=== PATIENT | female | born 1975 | race Caucasian/White ===

== ENCOUNTER 2024-07-09 01:54 | Day surgery (SDC) | payer BC, SELFPAY ==
[2024-07-03 13:50] VITALS: BMI 34.4
--- NOTE | 2024-07-03 14:26 | SUR.PREOP ---
Report to the Outpatient Waiting Room, entrance under the green pavilion located off [facility], at time 1130 on date 07/09/24_. Planned Procedure Time: 1330.? Time changes happen often and if your time is changed the preop area will call you the afternoon before. - You and your visitor will be asked to self-screen and do not enter if you have any COVID symptoms. Please call surgeon if you need to reschedule. - A mask is optional within the hospital at this time. Patients may have clear liquids (water, carbonated beverages, clear teas, apple juice) until 3 hours prior to surgery with a maximum of 20 ounces. - No food from midnight until time of surgery and no smoking - Infants may have breast milk until 4 hours before surgery, infant formula 6 hours prior to surgery. - Children will be allowed to drink immediately following surgery.? If applicable, please bring a bottle or sippy cup to assist with drinking. Juice, water, soda, and popsicles are readily available.? For infants on formula, please bring formula the day of surgery.? Pacifiers are allowed. Take only the following medications with a SIP of water on the morning of surgery: N/A DO NOT STOP ANY OF YOUR OTHER PRESCRIPTION MEDICATIONS PRIOR TO SURGERY EXCEPT THE FOLLOWING Medications to discontinue per physician N/A Date to take last dose N/A Please no make-up, nail german, hairspray, perfume, deodorant, or body powder the day of surgery.? No jewelry (including any body piercings) or valuables the day of surgery, leave them at home.? Please take a shower or bath the night before, or the morning of, surgery with an antibacterial soap.? Wear comfortable, loose fitting clothing.? Children are encouraged to wear pajamas. - Jewelry must be removed prior to entering the operating room.? Rings and piercings that are not removed may be cut off. - The hospital will not accept responsibility for valuables.? - Please leave all valuables, including medications, at home the day of surgery. If you are going home after surgery, a licensed bellman driver must drive you home.? - NO public transportation without another adult if you receive anesthesia. - We recommend that an adult stay with you for 24 hours following discharge. - We also recommend that you do not drive, make important decision, drink alcoholic beverages, or take any drugs that were not prescribed by your health care provider for at least 24 hours after your discharge time. For Pediatric surgeries, we recommend two adults accompany the child home. Follow any additional instructions given to you from your surgeon. Telephone instructions given to JESSICA STEWARD and asked if any additional questions and then verbalized understanding. Patient advised to call surgeon office or pre surgery nurse liaison [phone] if any additional questions.
--- NOTE | 2024-07-09 08:57 | PM.IMHP ---
H&P: HPI History of Present Illness Date/Time: 07/09/24 08:57 Chief Complaint: Heavy, irregular bleeding Narrative: 48 y/o with increasingly heavy and difficult to predict menses. Ultrasound shows an irregular endometrial stripe of borderline thickness, measuring 1.6 cm. Review of Systems Review of Systems: All systems reviewed & are unremarkable except as noted in HPI and below PMFSH Past Medical History Medical History Hyperlipidemia Insomnia Left anterior knee pain Normal Pap smear (~12/16/20) Surgical History Surgical History H/O hemorrhoidectomy H/O tubal ligation Family History Family History Father Hypertension Acute myocardial infarction Family history of coronary artery disease, Onset Age: 80 Mother Hypertension Family history of throat cancer Social History Social History Smoking status: Never smoker Smoking end date: 11/05/07 Alcohol intake: never Living arrangements: with family Spiritual care concerns: No Meds Home Medications and Allergies Home Medications Medication Instructions Recorded Confirmed Type No Home Medications 07/03/24 07/03/24 History Allergies Allergy/AdvReac Type Severity Reaction Status Date / Time meperidine [From Demerol] AdvReac vomiting Verified 07/03/24 14:33 Exam Const: Orientation/consciousness: patient oriented x3 Other: Well-developed, well-nourished female in no acute distress. Neck: Thyroid: thyroid normal Lymphatic: no lymphadenopathy noted (in neck, axilla or inguinal nodes) Resp: Effort & Inspection: normal respiratory effort Auscultation: clear to auscultation bilaterally Cardio: Rate: regular rate Rhythm: regular rhythm Heart sounds: S1 normal heart sound present and S2 normal heart sound present GI: Other: ABD: Soft, nontender, nondistended. No guarding or rebound tenderness. No hepatosplenomegaly. : General: Yes no CVA tenderness Other: External genitalia: normal female hair distribution, without lesion. Urethral meatus: no lesion, non prolapsed. Bladder: no mass, nontender Vagina: well-estrogenized, without lesion or discharge. No cystocele or rectocele. Cervix: no lesion or discharge. Uterus: small, anteverted, freely mobile, nontender Adnexa: no mass or tenderness. Anus/perineum: no lesions, nontender Back/Spine/Pelvis: Back: no CVA tenderness Skin: General skin exam: normal color and no rashes or lesions noted Neuro: General: patient oriented x3 Extrem: Other: Extremities: nontender with no edema Psych: Mental Status: mental status grossly normal Affect: normal affect Assessment and Plan Assessment and plan (1) Menometrorrhagia: Code(s): N92.1 - Excessive and frequent menstruation with irregular cycle Status: Acute Assessment and Plan: A: Perimenopausal menometrorrhagia with a thickened endometrium on ultrasound. P: Offered hysteroscopy with dilation and sharp curettage. She understands risks of surgery to include risks of anesthesia, risks of pain, infection, bleeding, blood products, thromboembolic phenomena and damage to adjacent structures such as bowel, bladder, ureters, blood vessels and nerves. She understands all these risks and elects to proceed with surgery.
[2024-07-09 10:50] VITALS: BP 134/64; PULSE 80; RESP 18; TEMP 37.3; O2SAT 98
[2024-07-09] MEDS: LACTATED RINGERS 1,000 ML 30 ML IV CONT (11:05)
[2024-07-09 11:21] VITALS: BMI 35.4
[2024-07-09 11:23] LABS: BEDSIDEPREGUCG Negative
[2024-07-09] MEDS: ACETAMINOPHEN 500 MG TABLET 1000 MG PO (12:17)
--- NOTE | 2024-07-09 13:09 | P.PNAN_ITS ---
Anes - Initial Pre Proc Eval Procedure: Operation Date: 07/09/24 13:30 Proposed Procedures p Hysteroscopy Dilation and Curettage - River Kelley MD Date/Time: 07/09/24 13:09 Surgeon: River Kelley MD Pre Op Diagnosis: post menopausal bleeding Patient Data Age: 48 Gender: F Height: 1.7 m Weight: 102.8 kg Last Vital Signs Temp 99.2 F 07/09/24 10:50 Pulse 80 07/09/24 10:50 Resp 18 07/09/24 10:50 BP 134/64 07/09/24 10:50 Pulse Ox 98 07/09/24 10:50 O2 Del Method Room Air 07/09/24 10:50 Allergies Allergy/AdvReac Type Severity Reaction Status Date / Time meperidine [From Demerol] AdvReac vomiting Verified 07/09/24 11:20 Home Medications Medication Instructions Recorded Confirmed Type No Home Medications 07/03/24 07/03/24 History Laboratory Tests 07/09/24 11:10 POC Urine HCG, Qual Negative Patient hx anesthesia problems: none Family hx anesthesia problems: none Results Review: All pre-operative results and documents have been reviewed as part of the pre- operative evaluation. PENDING SALE TO [facility] Past Medical History Medical History Hyperlipidemia Insomnia Left anterior knee pain Normal Pap smear (~12/16/20) Surgical History Surgical History H/O hemorrhoidectomy H/O tubal ligation Family History Family History Father Hypertension Acute myocardial infarction Family history of coronary artery disease, Onset Age: 80 Mother Hypertension Family history of throat cancer Social History Social History Smoking status: Never smoker Smoking end date: 11/05/07 Alcohol intake: never Living arrangements: with family Spiritual care concerns: No Anes - Eval Final PreProcedure Day of Procedure 07/09/24 13:09 Patient weight: obese Heart: regular rate and rhythm Lungs: clear to auscultation Airway: Mallampati scale class II Neurological: alert and oriented Last oral intake: >/= 8 hours ASA classification: II Emergent: no Anesthetic plan: proceed Anesthesia type and monitoring: general GIVS and standard monitoring Results Review: All pre-operative results and documents have been reviewed as part of the pre- operative evaluation. Informed Consent: The patient's anesthetic plan and its attendant risks and benefits were discussed with the patient/family/POA. Questions were solicited and answers provided to the satisfaction of the patient/family/POA.
--- NOTE | 2024-07-09 13:31 | WPDHPUPDATE1 ---
History and Physical Update Update Date/Time: 07/09/24 13:31 History and Physical has been reviewed, including an updated exam of the patient. There are NO changes in the patient's condition. Risks, benefits, and alternatives have been discussed and questions answered. Patient agrees to proceed with procedure.
[2024-07-09] MEDS: LIDOCAINE HCL 1% LOCAL INJ 20 ML VIAL 10 ML INFILTRATE (13:50)
[2024-07-09 14:10] VITALS: BP 132/91; PULSE 99; RESP 16; O2SAT 95
--- NOTE | 2024-07-09 14:12 | W.PM.PROC2 ---
Procedure Note - Detailed Date of Procedure 07/09/24 Pre-op Diagnosis Postmenopausal bleeding Thickened endometrium on ultrasound Post-op Diagnosis Same Procedure Performed Hysteroscopy Dilation and fractional sharp curettage Endometrial polypectomy Surgeon River Kelley MD Anesthesia MAC and Local (1% lidocaine) Findings Endometrial polyps seen. Both tubal ostia seen. Description of Procedure The patient was taken to the operating room where she was prepared and draped in the usual sterile fashion in the dorsal lithotomy position. The bladder was drained with a red rubber catheter. A sterile speculum was placed into the vagina. The anterior lip of the cervix was grasped with single-tooth tenaculum. Ten mL of 1% lidocaine was administered in a paracervical block. Endocervical curettage was collected. The cervix was then gently dilated using Hegar dilators until a 7 mm dilator could be passed. Hysteroscopy was performed using sterile saline as a distention medium. Findings are as noted above. The Aveta hysteroscopic resection blade was used to resect several small fundal polyps. Polyps were visually confirmed to have been completely removed. Sharp curettage was then performed, and endometrial curettings were collected on a Telfa pad and passed off to be sent to pathology. Hemostasis was excellent. Sponge, lap, needle and instrument counts were correct. The patient was awakened and taken to the recovery room in stable condition. I was present and scrubbed through the entire procedure. Implants None Estimated Blood Loss 5 Drains No Packing No Pathology Yes (Endocervical and endometrial curettings) Complications None Disposition PACU
[2024-07-09 14:40] VITALS: BP 116/64; PULSE 79
[2024-07-09 14:50] VITALS: BP 118/73; PULSE 71; RESP 16
== END 2024-07-09 14:57 | disposition home or self-care (01) ==
PROVIDERS: PCP Family Medicine; Visit Provider Obstetrics & Gynecology
PROC: 0U5B8ZZ Destruction of Endometrium, Via Natural or Artificial Opening Endoscopic (ICD-10-PCS; CPT 58563; principal; 2024-07-09 13:30)
DX: N95.0 Postmenopausal bleeding (principal); N85.01 Benign endometrial hyperplasia; E78.5 Hyperlipidemia, unspecified; E66.9 Obesity, unspecified; Z68.35 Body mass index [BMI] 35.0-35.9, adult
CPT/HCPCS: 58558; 88305; A9270; J1100; J2250; J2405; J2704; J3010; J7120